=== PATIENT | male | born 1935 | race Two or more races ===

== ENCOUNTER 2018-05-01 00:03 | Inpatient (IN) | payer OTHER ==
[~2018-05-01] VITALS: Ht 172.7 cm; Wt 84.8 kg
[2018-05-01 00:03] VITALS: BP 119/79
[2018-05-01 00:05] VITALS: BP 119/79
[2018-05-01 03:03] LABS: Basophils # (auto) 0.1 uL; Basophils % (auto) 0.5 % (0.0-2.0); Eosinophils # (auto) 0.1 uL; Eosinophils % (auto) 0.4 % (0.0-7.0); Hematocrit 52.6 % (41.0-53.0); Lymphocytes # (auto) 8.3 uL; Mean Corpuscular Hemoglobin 29.1 pg (28.0-32.0); Mean Corpuscular Hgb Conc. 32.3 g/dL (32.0-36.0); Mean Corpuscular Volume 90.1 fL (80.0-100.0); Monocytes # (auto) 1.1 uL; Monocytes % (auto) 5.5 % (0.0-12.0); Neutrophils # (auto) 10.7 uL; Neutrophils % (auto) 52.6 % (37.0-80.0); Nucleated Red Blood Cells % 0.2 %; Platelet Count (auto) 122 10^3/uL (140-450); Red Blood Cells 5.84 10^6/uL (4.5-5.90); Red Cell Distribution Width 16.4 % (11.8-14.3); White Blood Cell 20.3 10^3/uL (4.4-10.8)
[2018-05-01 03:12] LABS: Albumin 3.3 g/dL (3.4-5.0); BUN/Creatinine Ratio 33.8; Calcium 8.9 mg/dL (8.5-10.1); Potassium 3.7 mmol/L (3.5-5.1)
[2018-05-01 03:15] LABS: INR 1.16 (0.9-1.15); Partial Thromboplastin Time 32.8 sec (23.78-33.04); Prothrombin Time 12.3 sec (9.27-12.13)
[2018-05-01 03:17] LABS: Bilirubin, Total 1.3 mg/dL (0.2-1.0); Total Protein 7.5 g/dL (6.4-8.2)
[2018-05-01 05:56] LABS: Urine Bacteria FEW /hpf (None Seen); Urine Blood 2+ /uL (Negative); Urine Mucus FEW (None Seen); Urine Specific Gravity 1.018 (1.001-1.035); Urine WBC 7 /hpf (0 - 3)
[2018-05-01] MEDS ORDERED: HYDROcodone-ACET 5/325MG TAB PO PRN (07:15)
[2018-05-01] MEDS ORDERED: ONDANSETRON HCL 4 MG/2 ML VIAL IV PRN ×2 (07:15→15:00)
[2018-05-01] MEDS ORDERED: SOD CHL 0.45% 1,000 ML IV SCH (07:15)
[2018-05-01] MEDS ORDERED: ACETAMINOPHEN 325 MG TAB PO PRN (07:15)
[2018-05-01] MEDS: D5W/SOD CHL 0.2% 1,000 ML IV SCH ×3 (08:45→21:48)
[2018-05-01 08:57] VITALS: BP 112/69
[2018-05-01] MEDS ORDERED: PATIENTS OWN MEDICATION (xarelto 20 MG) PO SCH (10:00)
[2018-05-01] MEDS: SERTRALINE HCL 50 MG TAB PO SCH (10:00)
[2018-05-01] MEDS ORDERED: LOSARTAN POTASSIUM 25 MG TAB PO SCH (10:00)
[2018-05-01] MEDS: VALPROIC ACID 250 MG/5 ML ORAL SOLN PO SCH ×2 (10:00→21:39)
[2018-05-01] MEDS ORDERED: HCTZ 25 MG TAB PO SCH (10:00)
[2018-05-01] MEDS: PANTOPRAZOLE 40 MG TAB PO SCH (10:00)
[2018-05-01] MEDS: LEVOFLOXACIN 250MG 50 ML IV SCH (10:05)
[2018-05-01 13:00] VITALS: BP 122/74
[2018-05-01] MEDS: MORPHINE SULFATE 4 MG/ML SYR/VIAL IV PRN (15:10)
[2018-05-01] MEDS: RIVAROXABAN 20 MG TAB PO SCH (17:10)
[2018-05-01 17:41] VITALS: BP 124/84
[2018-05-01] MEDS ORDERED: [UNRECOGNIZED DRUG - CODE] PO (18:26)
[2018-05-01] MEDS ORDERED: DONE10TA40 PO (18:26)
[2018-05-01] MEDS ORDERED: LOSA25TA40 PO (18:26)
[2018-05-01] MEDS ORDERED: DOCU100T15 PO (18:26)
[2018-05-01] MEDS ORDERED: BISO5TAB PO (18:26)
[2018-05-01] MEDS ORDERED: VALP250S16 PO (18:26)
[2018-05-01] MEDS ORDERED: FLUT110A INH (18:26)
[2018-05-01] MEDS ORDERED: LOPE2CAP14 PO (18:26)
[2018-05-01] MEDS ORDERED: CETI1TAB36 PO (18:26)
[2018-05-01] MEDS ORDERED: BIS10RS PR (18:26)
[2018-05-01] MEDS ORDERED: SERT-160 PO (18:26)
[2018-05-01] MEDS ORDERED: RIV15T PO (18:26)
[2018-05-01] MEDS ORDERED: MELA3TAB27 PO (18:26)
[2018-05-01] MEDS ORDERED: QUET25TA37 PO (18:26)
[2018-05-01] MEDS ORDERED: CALC600C PO (18:27)
[2018-05-01] MEDS ORDERED: MAGN400S25 PO (18:27)
[2018-05-01] MEDS ORDERED: ACET-1156 PO (18:27)
[2018-05-01] MEDS ORDERED: MAA30LQ GT (18:27)
[2018-05-01] MEDS ORDERED: SODIENE35 RE (18:27)
[2018-05-01] MEDS ORDERED: LORA-654 PO (18:27)
[2018-05-01] MEDS: DONEPEZIL HYDROCHLORIDE 5 MG TAB PO SCH (21:39)
[2018-05-01 22:23] VITALS: BP 132/67
[2018-05-02 05:45] VITALS: BP 118/85
[2018-05-02] MEDS: D5W/SOD CHL 0.2% 1,000 ML IV SCH (06:31)
[2018-05-02 07:14] LABS: Potassium 4.2 mmol/L (3.5-5.1)
[2018-05-02 07:19] LABS: Albumin 3.2 g/dL (3.4-5.0); BUN/Creatinine Ratio 32.7; Calcium 9.2 mg/dL (8.5-10.1)
[2018-05-02 07:21] LABS: Bilirubin, Total 1.2 mg/dL (0.2-1.0); Total Protein 7.4 g/dL (6.4-8.2)
[2018-05-02 07:28] LABS: Basophils # (auto) 0 uL; Basophils % (auto) 0.3 % (0.0-2.0); Eosinophils # (auto) 0.2 uL; Eosinophils % (auto) 1.4 % (0.0-7.0); Hematocrit 51.3 % (41.0-53.0); Hemoglobin 16.8 g/dL (13.5-17.5); Lymphocytes # (auto) 4.4 uL; Lymphocytes % (auto) 27.7 % (10.0-50.0); Mean Corpuscular Hemoglobin 29.6 pg (28.0-32.0); Mean Corpuscular Hgb Conc. 32.7 g/dL (32.0-36.0); Mean Corpuscular Volume 90.4 fL (80.0-100.0); Monocytes # (auto) 1.2 uL; Monocytes % (auto) 7.6 % (0.0-12.0); Platelet Count (auto) 102 10^3/uL (140-450); Red Blood Cells 5.68 10^6/uL (4.5-5.90); Red Cell Distribution Width 16.2 % (11.8-14.3); White Blood Cell 15.9 10^3/uL (4.4-10.8)
[2018-05-02 09:00] VITALS: BP 90/55
[2018-05-02] MEDS: PANTOPRAZOLE 40 MG TAB PO SCH (10:00)
[2018-05-02] MEDS: SERTRALINE HCL 50 MG TAB PO SCH (10:00)
[2018-05-02] MEDS: VALPROIC ACID 250 MG/5 ML ORAL SOLN PO SCH ×2 (10:00→21:57)
[2018-05-02] MEDS: LEVOFLOXACIN 250MG 50 ML IV SCH (10:10)
[2018-05-02] MEDS: D5W 5% 1,000 ML IV SCH ×2 (11:59→23:50)
[2018-05-02 13:16] VITALS: BP 110/76
[2018-05-02 17:30] VITALS: BP 125/80
[2018-05-02] MEDS: RIVAROXABAN 20 MG TAB PO SCH (18:00)
[2018-05-02] MEDS: DONEPEZIL HYDROCHLORIDE 5 MG TAB PO SCH (21:57)
[2018-05-02 22:00] VITALS: BP 131/70
[2018-05-03 05:16] VITALS: BP 130/75
[2018-05-03 07:21] LABS: Albumin 3.2 g/dL (3.4-5.0); Calcium 9.1 mg/dL (8.5-10.1); Potassium 3.7 mmol/L (3.5-5.1)
[2018-05-03 07:24] LABS: BUN/Creatinine Ratio 34.8; Bilirubin, Total 1.7 mg/dL (0.2-1.0); Total Protein 7.1 g/dL (6.4-8.2)
[2018-05-03 07:55] LABS: Basophils # (auto) 0.1 uL; Basophils % (auto) 0.5 % (0.0-2.0); Eosinophils # (auto) 0.2 uL; Eosinophils % (auto) 1.4 % (0.0-7.0); Hematocrit 50.2 % (41.0-53.0); Hemoglobin 16.4 g/dL (13.5-17.5); Lymphocytes # (auto) 4.6 uL; Mean Corpuscular Hemoglobin 29.4 pg (28.0-32.0); Mean Corpuscular Hgb Conc. 32.7 g/dL (32.0-36.0); Monocytes # (auto) 1.2 uL; Monocytes % (auto) 7.4 % (0.0-12.0); Neutrophils # (auto) 9.9 uL; Neutrophils % (auto) 61.7 % (37.0-80.0); Nucleated Red Blood Cells % 0.5 %; Platelet Count (auto) 94 10^3/uL (140-450); Red Blood Cells 5.58 10^6/uL (4.5-5.90); Red Cell Distribution Width 15.6 % (11.8-14.3)
[2018-05-03 09:00] VITALS: BP 137/59
[2018-05-03] MEDS: LORazepam 2MG/ML-1ML VIAL IV PRN (09:17)
[2018-05-03] MEDS: SERTRALINE HCL 50 MG TAB PO SCH (10:00)
[2018-05-03] MEDS: VALPROIC ACID 250 MG/5 ML ORAL SOLN PO SCH ×2 (10:00→22:00)
[2018-05-03] MEDS: PANTOPRAZOLE 40 MG TAB PO SCH (10:00)
[2018-05-03] MEDS: LEVOFLOXACIN 250MG 50 ML IV SCH (10:04)
[2018-05-03 13:00] VITALS: BP 119/72
[2018-05-03] MEDS: D5W 5% 1,000 ML IV SCH (13:10)
[2018-05-03 17:30] VITALS: BP 135/68
[2018-05-03] MEDS: RIVAROXABAN 20 MG TAB PO SCH (17:55)
[2018-05-03 21:58] VITALS: BP_SYST 119; BP_SYST 139; BP_DIAS 79; BP_DIAS 89
[2018-05-03] MEDS: DONEPEZIL HYDROCHLORIDE 5 MG TAB PO SCH (22:00)
[2018-05-03] MEDS: MORPHINE SULFATE 4 MG/ML SYR/VIAL IV PRN (22:44)
[2018-05-04] MEDS: D5W 5% 1,000 ML IV SCH ×2 (02:30→15:50)
[2018-05-04 05:39] VITALS: BP_SYST 115; BP_SYST 152; BP_DIAS 77; BP_DIAS 96
[2018-05-04 06:18] LABS: Basophils # (auto) 0.1 uL; Basophils % (auto) 0.5 % (0.0-2.0); Eosinophils # (auto) 0.3 uL; Eosinophils % (auto) 1.9 % (0.0-7.0); Hematocrit 51.3 % (41.0-53.0); Hemoglobin 17.2 g/dL (13.5-17.5); Lymphocytes # (auto) 6.7 uL; Lymphocytes % (auto) 42.8 % (10.0-50.0); Mean Corpuscular Hemoglobin 29.9 pg (28.0-32.0); Mean Corpuscular Hgb Conc. 33.6 g/dL (32.0-36.0); Monocytes # (auto) 0.9 uL; Neutrophils # (auto) 7.6 uL; Neutrophils % (auto) 48.8 % (37.0-80.0); Nucleated Red Blood Cells % 0.5 %; Platelet Count (auto) 87 10^3/uL (140-450); Red Blood Cells 5.76 10^6/uL (4.5-5.90); Red Cell Distribution Width 15.7 % (11.8-14.3); White Blood Cell 15.6 10^3/uL (4.4-10.8)
[2018-05-04 06:32] LABS: Albumin 3.3 g/dL (3.4-5.0); Calcium 9.2 mg/dL (8.5-10.1); Potassium 3.9 mmol/L (3.5-5.1)
[2018-05-04 06:39] LABS: BUN/Creatinine Ratio 32.6; Bilirubin, Total 1.5 mg/dL (0.2-1.0); Total Protein 7.2 g/dL (6.4-8.2)
[2018-05-04 08:48] VITALS: BP 126/72
[2018-05-04] MEDS: PANTOPRAZOLE 40 MG TAB PO SCH (10:00)
[2018-05-04] MEDS: LEVOFLOXACIN 250MG 50 ML IV SCH (10:00)
[2018-05-04] MEDS: VALPROIC ACID 250 MG/5 ML ORAL SOLN PO SCH ×2 (10:00→22:00)
[2018-05-04] MEDS: SERTRALINE HCL 50 MG TAB PO SCH (10:00)
[2018-05-04 12:54] VITALS: BP 123/71
[2018-05-04] MEDS: LORazepam 2MG/ML-1ML VIAL IV PRN (13:00)
[2018-05-04 16:42] VITALS: BP 139/91
[2018-05-04] MEDS: RIVAROXABAN 20 MG TAB PO SCH (18:00)
[2018-05-04 22:00] VITALS: BP 132/87
[2018-05-04] MEDS: DONEPEZIL HYDROCHLORIDE 5 MG TAB PO SCH (22:00)
[2018-05-05 05:08] VITALS: BP 134/84
[2018-05-05] MEDS: D5W 5% 1,000 ML IV SCH (05:10)
[2018-05-05 08:00] VITALS: BP 119/78
[2018-05-05] MEDS: PANTOPRAZOLE 40 MG TAB PO SCH (10:00)
[2018-05-05] MEDS: SERTRALINE HCL 50 MG TAB PO SCH (10:00)
[2018-05-05] MEDS: VALPROIC ACID 250 MG/5 ML ORAL SOLN PO SCH (10:00)
[2018-05-05] MEDS: LEVOFLOXACIN 250MG 50 ML IV SCH (10:00)
[2018-05-05 12:44] VITALS: BP 115/76
[2018-05-05 12:45] VITALS: BP 115/76
== END 2018-05-05 14:25 | disposition hospice, home (50) | DRG 872 ==
LOC: WEST WING 00:03
PROVIDERS: ADMIT Emergency Medicine; ATTEND Family Medicine
DX: A41.9 Sepsis, unspecified organism (principal); N39.0 Urinary tract infection, site not specified; E87.0 Hyperosmolality and hypernatremia; N17.9 Acute kidney failure, unspecified; E46 Unspecified protein-calorie malnutrition; E87.1 Hypo-osmolality and hyponatremia; E87.6 Hypokalemia; F03.90 Unspecified dementia, unspecified severity, without behavioral disturbance, psychotic disturbance, mood disturbance, and anxiety; F19.90 Other psychoactive substance use, unspecified, uncomplicated; I10 Essential (primary) hypertension; E86.0 Dehydration; R62.7 Adult failure to thrive; Z66 Do not resuscitate; I48.91 Unspecified atrial fibrillation; Z51.5 Encounter for palliative care; Z74.01 Bed confinement status; Z83.3 Family history of diabetes mellitus; Z86.73 Personal history of transient ischemic attack (TIA), and cerebral infarction without residual deficits; Z95.810 Presence of automatic (implantable) cardiac defibrillator; Z68.28 Body mass index [BMI] 28.0-28.9, adult
CPT/HCPCS: 36415; 70450; 71045; 80053; 81001; 83605; 84295; 84484; 85025; 85610; 85730; 87040; 87081; 87086; 96361; 96365; 96375; 97110; 97163; 97530; G0378; J2405